=== PATIENT | female | born 1940 | race Caucasian/White ===

== ENCOUNTER 2022-07-06 15:11 | Outpatient (CLI) | payer MEDICARE, SELFPAY ==
--- NOTE | ~2022-07-06 | DEXA_ITS ---
Bone Density Report Name: CARMELINA SILVA Age: 82 Sex: Female Ethnicity: White Date of : 1940 Indication: osteopenia; parental hip fracture; height loss; prior fracture; postmenopausal Referring Provider: MATTHIEU BORDEN Study: Bone densitometry was performed. Exam Date: July 06, 2022 Accession number: [id number] Bone Density: Region BMD T-score Z-score Classification AP Spine(L1, L2, L3) 1.145 1.2 3.9 Normal Femoral Neck (Left) 0.555 -2.7 -0.2 Osteoporosis Total Hip (Left) 0.714 -1.9 0.4 Osteopenia Femoral Neck (Right) 0.578 -2.4 0.0 Osteopenia Total Hip (Right) 0.670 -2.2 0.1 Osteopenia Total Hip Mean 0.692 -2.1 0.3 Osteopenia World Health Organization criteria for BMD impression classify patients as: Normal (T-score at or above -1.0), Osteopenia (T-score between -1.0 and -2.5), or Osteoporosis (T-score at or below -2.5). 10-year Fracture Risk: FRAX not reported because: Some T-score for Spine Total or Hip Total or Femoral Neck at or below -2.5 Previous Exams: Region Exam Age BMD T-score BMD Change BMD Change Date g/cm2 vs Baseline vs Previous AP Spine (L1-L3) 07/06/2022 82 1.145 1.2 0.190 (19.8%)# 0.129 (12.7%)* 05/12/2018 78 1.016 0.0 0.060 (6.3%)# 0.072 (7.6%)* 04/24/2015 75 0.945 -0.7 -0.011 (-1.2%) -0.011 (-1.2%) 02/27/2013 72 0.956 -0.6 Total Hip(Left) 07/06/2022 82 0.714 -1.9 -0.033 (-4.4%) -0.037 (-5.0%) 05/12/2018 78 0.752 -1.6 0.005 (0.6%)# -0.037 (-4.7%) 04/24/2015 75 0.788 -1.3 0.041 (5.6%)# 0.041 (5.6%)# 02/27/2013 72 0.747 -1.6 Total Hip(Right) 07/06/2022 82 0.670 -2.2 -0.041 (-5.8%) 0.004 (0.7%) 05/12/2018 78 0.666 -2.3 -0.045 (-6.4%) 0.002 (0.3%) 04/24/2015 75 0.664 -2.3 -0.047 (-6.6%) -0.047 (-6.6%) 02/27/2013 72 0.711 -1.9 *Denotes significance at 95% confidence level, LSC for AP Spine = 0.022 g/cm2, LSC for Total Hip = 0.027 g/cm2 # Denotes dissimilar scan types or analysis methods Clinical Information Provided by Patient: Has had a low trauma fracture Parent has had a hip fracture Patient maximum height was 63 Menopause Age: 53 No regular weight bearing exercise Drinks caffeinated beverages Onset of menses at age 14 Number of children 2 Impression: The patient has established osteoporosis, based on the Left Femoral Neck T-score and the existence of a prior fracture. The patient has risk factors, including: parental hi
== END 2022-07-06 15:12 | disposition home or self-care (01) ==
LOC: ANHIMG 15:12
PROVIDERS: PCP Internal Medicine; Visit Provider Internal Medicine
DX: Z78.0 Asymptomatic menopausal state (principal); M81.0 Age-related osteoporosis without current pathological fracture; M85.852 Other specified disorders of bone density and structure, left thigh; M85.851 Other specified disorders of bone density and structure, right thigh
CPT/HCPCS: 77080

== ENCOUNTER 2024-05-01 11:05 | Outpatient (CLI) | payer MEDICARE, SELFPAY ==
[2024-05-01 11:46] LABS: Basophils Absolute Auto 0.1 K/mm3 (0.0-0.1); Basophils Percent Auto 0.9 % (0.2-1.2); Eosinophils Absolute Auto 0.4 K/mm3 (0-0.3); Eosinophils Percent Auto 4.7 % (0-4.4); Hematocrit 38.6 % (37.0-47.0); Hemoglobin 12.6 g/dL (12.0-15.0); Immature Granulocyte Absolute 0.04 K/mm3 (0.00-0.031); Immature Granulocyte Percent A 0.5 % (0-0.5); Lymphocytes Absolute Auto 1.92 K/mm3 (0.9-3.2); Lymphocytes Percent Auto 25.8 % (18.3-44.2); Mean Corpuscular HGB Conc 32.6 g/dl (32-36); Mean Corpuscular Hemoglobin 28.3 pg (26-34); Mean Corpuscular Volume 86.7 fl (80-100); Mean Platelet Volume 9.5 fl (7.4-10.4); Monocytes Absolute Auto 0.6 K/mm3 (0.1-0.6); Monocytes Percent Auto 8.2 % (2.6-8.5); Neutrophils Absolute Auto 4.5 K/mm3 (1.3-6.7); Neutrophils Percent Auto 59.9 % (45.5-73.1); Platelet Count Result 288 k/mm3 (150-375); Red Blood Count 4.45 M/mm3 (4.2-5.4); Red Cell Distribution Width 12.5 % (11.5-14.5); White Blood Count 7.5 K/mm3 (4.5-10.0)
[2024-05-01 12:11] LABS: Alanine Aminotransferase 18 U/L (6-35); Albumin Level 4.5 g/dL (3.5-5.1); Alkaline Phosphatase 72 U/L (38-126); Anion Gap 10 mmol/L (4-12); Aspartate Amino Transferase 36 U/L (14-36); Bilirubin,Total 0.7 mg/dL (0.2-1.3); Blood Urea Nitrogen 23 mg/dL (7-17); Carbon Dioxide 32 mmol/L (22-30); Chloride 96 mmol/L (98-107); Cholesterol 161 mg/dL (0-200); Estimated Glomerular Filt Rate 39; Glucose 108 mg/dL (65-110); HDL Direct 39 mg/dL; Sodium 138 mmol/L (137-145); Triglycerides 150 mg/dL (<150)
[2024-05-01 12:23] LABS: LDL Cholesterol Direct 79 mg/dL
[2024-05-01 12:33] LABS: Free T4 Free Thyroxine 0.91 ng/mL (0.78-2.19)
== END 2024-05-01 11:06 | disposition home or self-care (01) ==
LOC: ANHLAB 11:17
PROVIDERS: PCP Internal Medicine; Visit Provider Internal Medicine
DX: I10 Essential (primary) hypertension (principal)
CPT/HCPCS: 36415; 80053; 80061; 84439; 84443; 84481; 85025

== ENCOUNTER 2024-05-04 12:50 | Outpatient (CLI) | payer MEDICARE, SELFPAY | END 2024-05-04 12:51 | disposition home or self-care (01) | LOC: ANHAUDASC 12:53 | PROVIDERS: PCP Internal Medicine; Visit Provider Internal Medicine | DX: H90.3 Sensorineural hearing loss, bilateral (principal) | CPT/HCPCS: 92557; 92567 ==

== ENCOUNTER 2025-01-17 13:42 | Outpatient (CLI) | payer MEDICARE, SELFPAY ==
--- OUTSIDE RECORDS SUMMARY | 2025-01-17 13:51 | XMS_ITS | CONTINUITY OF CARE DOCUMENT ---
Author Name misti, misti Address Unknown Organization [facility] Address [address] [place] [address] Phone [phone] Care Team Providers Care Windshield Repair Technician Name Role Phone Mauricio Myles MD Unavailable [phone] MATTHIEU PASCUAL MD Unavailable MATTHIEU PASCUAL MD Unavailable [phone] PROBLEMS Condition Status Date Provider Notes HYPERCHOLESTEROLEMIA active Mauricio Myles MD HTN ESSENTIAL active Mauricio Myles MD CHEST PAIN-03/04 NUC NEG EF 61 active ? Cornelius cortez RN ENCOUNTERS Date Type Provider Location Encounter Diag nosis - In-person encounter Office Visit Mauricio Myles MD [place] [facility] - In-person encounter Office Visit Mauricio Myles MD [place] [facility] CHEST PAIN-03/04 NUC NEG EF 61HTN ESSENTIALHYPERCHOLESTEROLEMIA VITAL SIGNS Date Observation Value Provider blood pressure, diastolic 85 mm[Hg] Salomon Miles RN blood pressure, systolic 155 mm[Hg] Cornelius Miles RN pulse rate 87 /min Cornelius Miles RN oxygen saturation, oximetry 99 % Cornelius Miles RN respiratory rate E&M 16 /min Cornelius li RN Body Mass Index (Ratio) 26.36 kg/m2 Cornelius Miles RN weight E&M 143.6 [lb_av] Cornelius Miles RN blood pressure, diastolic 89 mm[Hg] Ke rri Junioruelolier blood pressure, systolic 154 mm[Hg] Fady Sanzkirti pulse rate 115 /min Lori Talbert bria oxygen saturation, oximetry 95 % Lori Rivasmichelle respiratory rate E&M 18 /min Lori aggarwalkirti Body Mass Index (Ratio) 25.33 kg/m2 Lindsey Sanzkirti weight E&M 138 [lb_av] Lori Talbert joanaer height E&M 62 [in_i] Lori Handylilyyang joanaer ALLERGIES No Known Drug Allergies HISTORY OF MEDICATION USE Medication Status Instructions Dates Provider Indications Com ments EQ OMEPRAZOLE 20 MG ORAL TABLET DELAYED RELEASE active daily Cornelius Miles RN VITAMIN D TABLET active 5000iu monthly Lindsey bright Evelynmichelle MULTIVITAMINS ORAL CAPSULE active ONE TAB. DAILY Lori Flako ASPIRIN 81 MG ORAL TABLET active ONE TAB. DAILY Lori Flako DICLOFENAC SODIUM 50 MG ORAL TABLET DELAYED RELEASE active daily Lori Pachecobeamichelle LIPITOR 20 MG ORAL TABLET completed ONE TAB. DAILY - Cornelius Miles RN DIOVAN HCT 160-25 MG ORAL TABLET active one tab daily Lori Flako CALCIUM active 600mg once daily Lori Flako SOCIAL HISTORY Date Observation Value Provider drug use no Cornelius Miles RN passive cigarette smoke exposure no Cornelius Miles RN social history reviewed E&M reviewed Cornelius Miles RN social history E&M Marital Status: [place] d Mauricio Myles MD alcohol use, average drinks per day no Mauricio Myles MD drug use none Mauricio Myles MD smoking status never smoker Mauricio Myles MD social history reviewed E&M reviewed Mauricio Myles MD MENTAL STATUS Date Observation Value Provider assessment of judgme nt and insight E&M Alert and oriented to time, place and person. Mood and affect are normal.Alert and oriented to time, place and person. Mood and affect are normal. Mauricio Myles MD assessment of judgme nt and insight E&M Alert and oriented to time, place and person. Mood and affect are normal. Mauricio Myles MD INSURANCE PROVIDERS Payer name Policy type / Coverage type [employer] party ID [facility] [id number] [place] [employer] Medicare [id number] TREATMENT PLAN Date Name Performer test results : H er updated medication list for this problem includes: Aspirin 81 Mg Tabs (Aspirin) ..... One tab. daily BP today: / Prior BP: 154/89 (02/16/2013) N uclear Stress Findings: 1. Normal Madhav protocol exercise tolerance test.Impaired exercise tolerance 2 . Normal left ventricular size and function with a calculated ejection fraction of 61%. 3 . Myocardial scintigraphy is normal without evidence for previous myocardial infarction or reversible ischemia. - GC (02/21/2013) Mauricio Myles MD test results :155/85 H er updated medication list for this problem includes: Diovan Hct 160-25 Mg Tabs (Valsartan-hydrochlorothiazide) ..... One tab daily Aspirin 81 Mg Tabs (Aspirin) ..... One tab. daily Prior BP: 154/89 (02/16/2013) Mauricio Myles MD test results : T he following medications were removed from the medication list: Lipitor 20 Mg Tabs (Atorvastatin calcium) ..... One tab. daily BP today: / Prior BP: 154/89 (02/16/2013) Mauricio Myles MD : H er updated medication list for this problem includes: Lipitor 20 Mg Tabs (Atorvastatin calcium) ..... One tab. daily Mauricio Myles MD :154/89 H er updated medication list for this problem includes: Diovan Hct 160-25 Mg Tabs (Valsartan-hydrochlorothiazide) ..... One tab daily Aspirin 81 Mg Tabs (Aspirin) ..... One tab. daily Mauricio Myles MD : H er updated medication list for this problem includes: Aspirin 81 Mg Tabs (Aspirin) ..... One tab. daily Mauricio Myles MD Date Name STR - Nuclear Complete Echo
--- OUTSIDE RECORDS SUMMARY | 2025-01-17 13:51 | XMS_ITS | Data Portability ---
Author Organization [facility] Address [address] [place] [address] Care Team Providers Care Hot Box Checker Name Role Phone MATTHIEU DURÁN Primary Care Provider [phone] Assessment Encounter Date Assessment Date Assessment LastModified by Organization Details LastModified Time 05/01/2024 05/01/2024 continue current therapy healthy lifestyle care instructions to help her lose some weight hearing test follow up 4 months blood pressure today 130/90 we will have her monitor at home [email or web address] Not available 05/07/2024 18:35:51 09/07/2024 09/07/2024 obtain last echo report healthy lifestyle care instructions continue with her medications. All questions answered she will follow up me in 4 months' time [email or web address] Not available 09/07/2024 21:24:42 01/11/2025 01/11/2025 We will continue current therapy blood work has been ordered overall she has been doing fine echocardiogram blood work follow up 4 months continue current therapy [email or web address] Not available 01/13/2025 18:12:31 Plan of Treatment Reminders Order Date Submit Date Provider Last Modified By Organization Details Last Modified Time Details Appointments ANY 15 2024 01:30P M Matthieu Durán MD Not available Not available Not available Lab CBC w/ auto diff 2024 025 [email or web address] [facility], [address], [place], [address], 01/11/2025 17:58:05 lipid panel, serum 2024 025 [email or web address] [facility], [address], [place], [address], 01/11/2025 17:58:05 CMP, serum or plasma 2024 025 [facility], [address], [place], [address], 01/11/2025 17:58:05 CBC w/ auto diff 2023 024 ROWENA [facility], [address], [place], [address], 05/01/2024 16:42:38 CMP, serum or plasma 2023 024 ROWENA [facility], [address], [place], [address], 05/01/2024 16:42:38 lipid panel, serum [facility]24 [email or web address], [address], [place], [address], 05/23/2024 15:37:33 TSH, ultra-sen sitive, serum 2023 024 ROWENA [facility], [address], [place], [address], 05/01/2024 16:42:38 unlisted lab - T4, free 2023 024 [place] [email or web address] [facility], [address], [place], [address], 05/23/2024 15:37:19 T3, free, serum or plasma 2023 024 ROWENA [facility], [address], [place], [address], 05/03/2024 12:12:[address] referral - Pt needs hearing test. 2023 024 ROWENA Not available 05/05/2024 09:18:51 Procedures None recorded. Surgeries None recorded. Imaging US, echocardi ogram 2024 025 [facility] (Cardiology [facility]), [address], [address], 01/16/2025 14:45:29 Medication Orders None recorded. Patient TargetsNo targets recorded. 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 Referring Physician: Matthieu Durán, Internal Medicine, Encounter Date: 05/01/2024 Results Created Date Observation Date Name Description Value Unit Range Abnormal Flag Note LastModifiedBy Organization Detail LastModifiedTime 09/08/1903/30/2023 US, echoc ardio gram No observ ation record ed. [email or web address] [facility] [address] [place], [address], 09/14/2024 13:29:40 Result Notes None recorded. Problems Name Problem SNOMED Code Status Onset Date Resolution Date Notes Provider Name and Address Organization Details Recorded Time Essential hypertension 05843546 Active 2023 CHASIDY Cordero, [place] [facility] 16:58:03 Hyperlipidemia 25754331 Active 2023 CHASIDY Cordero, [place] - [facility] 16:58:10 Gastroesophage al reflux disease 979233812 Active 2023 CHASIDY Cordero, [place] - [facility] 4 16:58:19 Hyponatremia 89708194 Active 2023 Selvin Ramirez MA null, [facility] 4 16:58:33 Chronic rhinitis 84524949 Active 2023 Matthieu Durán MD Attn: Reynaldo smallwood,[address], [place], [address], [facility] 4 18:35:31 Aortic valve calcification 066886654 Active 2024 Matthieu Durán MD Attn: Reynaldo smallwood,[address], [place], [address], [facility] 5 18:12:05 Problem Notes None recorded. Procedures Surgical History Date Name Laterality Status Provider Name and Address Organization Details Recorded Time Eye Surgery completed Deanna Childs MA [facility] 11/02/2023 12:52:04 Appendectomy completed Deanna Childs MA [facility] 11/02/2023 12:52:11 Breast Surgery completed Deanna Childs MA [facility] 11/02/2023 12:52:19 Imaging Results None recorded. Procedure Notes None recorded. Medical Equipment None Reported. Allergies No known drug allergies Medications Name Sig Start Date Stop Date Status Note LastModified by Organization Details LastModified Time atorvastatin 40 mg tablet TAKE 1 TABLET EVERY DAY active Not Available Not Available No t Available doxycycline hyclate 100 mg capsule TAKE 1 CAPSULE BY MOUTH TWICE DAILY FOR 7 DAYS 11/01 completed Not Available Not Available Not Available azithromycin 250 mg tablet TAKE 2 TABLETS BY MOUTH ON DAY 1, AND THEN TAKE 1 TABLET BY MOUTH ONCE A DAY ON DAY 2 THROUGH DAY 5 active Not Available Not Available No t Available amlodipine 5 mg tablet TAKE 1 TABLET EVERY DAY active Not Available Not Available No t Available metoprolol tartrate 50 mg tablet TAKE 1 TABLET TWICE DAILY active Not Available Not Available No t Available omeprazole 20 mg capsule,katie yed release TAKE 1 CAPSULE EVERY DAY active Not Available Not Available No t Available hydrochlorot hiazide 25 mg tablet TAKE 1 TABLET EVERY DAY active Not Available Not Available No t Available losartan 100 mg tablet TAKE 1 TABLET EVERY DAY active Not Available Not Available No t Available Vitamin D3 active Not Available Not Av ailable Not Available cetirizine 10 mg capsule Take by oral route. active Not Available Not Available No t Available aspirin 81 mg capsule Take 1 capsule every day by oral route. active Not Available Not Available No t Available Vitals Date Recorded Body height Body mass index (BMI) Body weight Heart rate Oxygen saturation Oxygen saturation in Arterial blood by Pulse oximetry Systolic blood pressure Diastolic blood pressure Provider Name and Address Organization Details Last Updated DateTime 5 157.48 cm 27 kg/m2 38554.2 3 g 62 /min 98 % 98 % 126 mm[Hg] 62 mm[Hg] Francine Tabares MA [facility] 5 14:52:36 Date Recorded Body height Provider Name an d Address Organization Details Last Updated DateTime 12/30/2023 157.48 cm Francine Tabares MA [facility] 4 12:27:43 Date Recorded Body height Systolic blood pressure Diastolic blood pressure Provider Name and Address Organization Details Last Updated DateTime 01/06/2024 157.48 cm 150 mm[Hg] 84 mm[Hg] Deanna Childs MA [facility] 01/06/2024 12:19:08 Date Recorded Body height Body mass index (BMI) Body weight Heart rate Oxygen saturation Oxygen saturation in Arterial blood by Pulse oximetry Systolic blood pressure Diastolic blood pressure Provider Name and Address Organization Details Last Updated DateTime 5 157.48 cm 26.2 kg/m2 02819.0 7 g 84 /min 98 % 98 % 124 mm[Hg] 68 mm[Hg] Francine Tabares MA [facility] 5 14:51:31 Date Recorded Body height Body mass index (BMI) Body weight Heart rate Oxygen saturation Oxygen saturation in Arterial blood by Pulse oximetry Systolic blood pressure Diastolic blood pressure Provider Name and Address Organization Details Last Updated DateTime 157.48 cm 26.5 kg/m2 34170.0 4 g 73 /min 97 % 97 % 130 mm[Hg] 90 mm[Hg] Nikole Parks MA [facility] 11:30:02 Social History Question Answer Notes LastModified by Organizat ion Details LastModified Time Tobacco Smoking Status Never Smoker Deanna Childs MA null, [facility] 11/02/2023 12:54:01 Do You Have An Advance Directive? Yes Information n ot available 11/02/2023 Are You Blind Or Do You Have Difficulty Seeing? No Information n ot available 11/02/2023 What Is Your Level Of Caffeine Consumption? Occasional Information not available 11/02/2023 In The 14 Days Before Symptom Onset, Have You Had Close Contact With A Laboratory-confirm ed COVID-19 While That Case Was Ill? No Information n ot available 05/01/2024 In The 14 Days Before Symptom Onset, Have You Had Close Contact With A Person Who Is Under Investigation For COVID-19 While That Person Was Ill? No Information not available 05/01/2024 Have You Been To An Area Known To Be High Risk For COVID-19? No Information not available 05/01/2024 Are You Deaf Or Do You Have Serious Difficulty Hearing? No Information not available 11/02/2023 What Type Of Diet Are You Following? REGULAR Information n ot available 11/02/2023 Are There Any Guns Present In Your Home? No Information not available 11/02/2023 What Was The Date Of Your Most Recent Tobacco Screening? 01/11/2025 [email or web address] Information not available 01/11/2025 What Is Your Relationship Status? Information not available 11/02/2023 Do You Use Your Seat Belt Or Car Seat Routinely? Yes Information not available 11/02/2023 Do You Have Smoke And Carbon Monoxide Detectors In Your Home? Yes Information not available 11/02/2023 Do You Use Sunscreen Routinely? No Information not available 11/02/2023 Has Tobacco Cessation Counseling Been Provided? No Information not available 11/02/2023 Sex: Female Functional Status Question Answer Note LastModified by Organizat ion Details LastModified Time Do you use any illicit or recreational drugs? No Information not available 11/02/2023 Do you or have you ever used any other forms of tobacco or nicotine? No Information not available 11/02/2023 What is your level of alcohol consumption? Occasional Information not available 11/02/2023 Are you able to care for yourself? Yes Information n ot available 11/02/2023 What is your exercise level? None Information not available 11/02/2023 Mental Status Question Answer Note LastModified by Organization D etails LastModified Time Do you feel stressed (tense, restless, nervous, or anxious, or unable to sleep at night)? [id number] Information not available 11/02/2023 Family History Relationship Description Onset Age of this Age Resolved Age Notes LastModified by Organization Details LastModified Time Mother Malignant tumor of colon [email or web address] Not available 10/21 12:55:58 Mother Hypertensive disorder [email or web address] Not available 10/21 12:56:44 Father Myocardial infarction [email or web address] Not available 07/2024 12:56:05 Medical History Condition Response Coronary Artery Disease N High Blood Pressure Y Atrial Fibrillation N Kidney or Bladder Problems N Depression N COPD N Blood Clots N GI Problems N Skin Problems N Anemia N Heart Attack (NE) N Diabetes N Anxiety Disorder N Muscle, Joint, or Bone Problems Y Seizures/Epilepsy N Acid Reflux (GERD) Y Cancer N Asthma N Allergies Y High Cholesterol Y Hepatitis N Liver Disease N Headaches N Osteoporosis N Heart Failure N Gynecological HistoryNo gynecological history recorded. Obstetrics History GPAL:G 0 P 0 0 0 0 Immunizations Vaccine Type Date Status Note Provider Nam e and Address Organization Details Recorded Time Influenza, high-dose, quadrivalent, PF 2 completed Francine [place], [place] [facility] 09/07/2024 14:48:05 Influenza, high-dose, quadrivalent, PF 0 completed Francine Tab[place] [facility] 09/07/2024 14:48:05 Influenza, high-dose, quadrivalent, PF 3 completed Francine RaysaCHASIDY dozier [place] [facility] 09/07/2024 14:48:05 Influenza, high-dose, quadrivalent, PF 1 completed Francine Tab[place] [facility] 09/07/2024 14:48:05 Influenza, high-dose, quadrivalent, PF 9 completed Francine [place] [facility] 09/07/2024 14:48:05 COVID-19, mRNA, LNP-S, PF, 100 mcg/0.5mL dose or 50 mcg/0.25mL dose 1 [place] [facility] 09/07/2024 14:48:05 COVID-19, mRNA, LNP-S, PF, 100 mcg/0.5mL dose or 50 mcg/0.25mL dose 1 completed Francine Tabares [place] [facility] 09/07/2024 14:48:05 COVID-19, mRNA, LNP-S, PF, 100 mcg/0.5mL dose or 50 mcg/0.25mL dose 1 [place] [facility] 09/07/2024 14:48:05 COVID-19, mRNA, LNP-S, PF, 100 mcg/0.5mL dose or 50 mcg/0.25mL dose 1 [place] [facility] 09/07/2024 14:48:05 COVID-19, mRNA, LNP-S, bivalent, PF, 50 mcg/0.5 mL or 25mcg/0.25 mL dose 3 [place] [facility] 09/07/2024 14:48:05 pneumococcal polysaccharide PPV23 9 [place] [facility] 09/07/2024 14:48:05 influenza, unspecified formulation 8 completed Francine Tabares [place] [facility] 09/07/2024 14:48:05 Pneumococcal conjugate PCV 13 1 completed Francine [place]ares [place] [facility] 09/07/2024 14:48:05 zoster live 1 completed Francine Tabares [place] [facility] 09/07/2024 14:48:05 Influenza, high-dose, trivalent, PF 5 completed Francine Tabares [place] [facility] 09/07/2024 14:48:05 Influenza, high-dose, trivalent, PF 6 completed Francine Rays[place], [place] [facility] 09/07/2024 14:48:05 Influenza, high-dose, trivalent, PF 7 completed Francine Raysa, [place] [facility] 09/07/2024 14:48:05 Influenza, high-dose, trivalent, PF 6 completed Francine Raysa, [place] [facility] 09/07/2024 14:48:05 Influenza, high-dose, trivalent, PF 9 completed Francine Raysa, [place] [facility] 09/07/2024 14:48:05 Influenza, split virus, trivalent, PF 0 completed Francine Raysa, [place] [facility] 09/07/2024 14:48:05 Influenza, high-dose, trivalent, PF 4 completed Francine Raysa, [place] [facility] 09/07/2024 14:48:11 Past Encounters Encounter ID Performer Location Encounter Start Date Encounter Closed Date Diagnosis/Indication Diagnosis SNOMED-CT Code Diagnosis ICD10 Code Diagnosis Note [id number] Matthieu Durán MD [facility] (Adult Med) [address] [place] [phone] 11/02/2023 12:13:44 11/02/2023 13:47:51 Essential hypertension 85378324 I10 Hyperlipidemia 23260730 E78.5 Gastroesop hageal reflux disease without esophagitis 912199383 K21.9 Hyponatremia 98896960 E8 7.1 [id number] MD [facility] (Adult Med) [address] [place] [phone] 12/22/2023 11:50:24 01/21/2024 03:48:31 [id number] Matthieu Durán MD [facility] [place] [address] [place] [address] 12/30/2023 11:42:28 12/30/2023 14:39:14 Essential hypertension 67722940 I10 [id number] Matthieu Durán MD [facility] [place] [address] [place] [address] 01/06/2024 11:45:37 01/06/2024 12:52:04 Essential hypertension 59126245 I10 [id number] Matthieu Durán MD [facility] [employer] [facility] [place] [address] [place] [phone] 05/01/2024 10:49:48 05/01/2024 11:47:36 Overweight 774568554 E66.3 Essential hypertension 64112459 I10 Bilateral hearing loss 83915977 H91.93 Gastroesop hageal reflux disease 615600671 K21.9 Hyperlipidemia 48968264 E78.5 Chronic rhinitis 8870199 6 J31.0 [id number] Matthieu Durán MD [facility] [employer] [facility] [place] [address] [place] [phone] 09/07/2024 14:37:06 09/07/2024 15:48:55 Body mass index 25-29 - overweight 827790589 Z68.27 Overweight 255022817 E66 .3 Essential hypertension 02455825 I10 Gastroesop hageal reflux disease 733191982 K21.9 Hyperlipidemia 76049979 E78.5 [id number] Matthieu Durán MD [facility] [place] [address] [place] [phone] 01/11/2025 14:39:47 01/11/2025 15:46:06 Overweight in adulthood with body mass index of 25 or more but less than 30 018065913 E66.3 Z68.26 Overweight 975227103 E66 .3 Essential hypertension 11303534 I10 Hyperlipidemia 29566530 E78.5 Gastroesop hageal reflux disease 149031274 K21.9 Aortic sigrid ve calcification 089315774 I35.9 Health Concerns Section Related Observation LastModified by Organization Detai ls LastModified Time None Recorded Concern Status LastModified by Organization Details LastModified Time None Recorded Advance Directives Directive Y: Payers Encounter Date Sequence Insurance Name Policy Number Policy Arizmendi Covered Member ID Arizmendi Member ID Guarantor Name 12/30/2023 1 [place] Vicky Page Yordan [id number] Vicky A Yordan 12/30/2023 2 [place] Phyliss Stephanie Yordan [id number] Vicky A Yordan 01/06/2024 1 [place] Vicky A Yordan [id number] Vicky A Yordan 01/06/2024 2 [place] Phyliss Stephanie Yordan [id number] Vicky A Yordan 05/01/2024 1 [place] V[place] A Yordan [id number] Vicky A Yordan 05/01/2024 2 [place] Phyliss Stephanie Yordan [id number] Vicky A Yordan 09/07/2024 1 [place] Vicky A Yordan [id number] 2 Ivcky A Yordan 09/07/2024 2 [place] Phyliss Stephanie Yordan [id number] Vicky A Yordan 01/11/2025 1 [place] Vicky A Yordan [id number] 2 Vicky A Yordan 01/11/2025 2 [place] Phyliss Stephanie Yordan [id number] Vicky A Yordan Notes Date Note Type Note Provider Name and Address Organization Details Recorded Time 05/01/2024 text/html hypertension no headache or dizziness she is having some problems with hearing loss hyperlipidemia trying to follow a low-fat diet GERD no nausea no vomiting rhinitis does okay with the Zyrtec Matthieu Durán MD Attn: [address] [place], [address], [facility] 05/07/2024 18:36:41 09/07/2024 text/html hypertension no headache or dizziness going to nausea no vomiting hyperlipidemia takes her medication is trying to follow a low-fat diet the best that she can overall she has remained stable active Matthieu Durán MD Attn: [address] [facility], [place], [address], [place] 09/07/2024 21:25:17 01/11/2025 text/html hypertension no headache or dizziness going to nausea no vomiting hyperlipidemia takes her medication is trying to follow a low-fat diet the best that she can overall she has remained stable active GERD doing fine she is taking her supplementation for her low vitamin-D chronic rhinitis stable Matthieu Durán MD Attn: [address] [facility], [place], [address], [facility] 01/13/2025 18:12:55 OBGyn Episode No OBEpisode recorded.
--- OUTSIDE RECORDS SUMMARY | 2025-01-17 13:51 | XMS_ITS | Data Portability ---
Author Organization [facility], Main Office Address [address] [place] [address] Care Team Providers Care Test Architect Name Role Phone MATTHIEU DURÁN Primary Care Provider MATTHIEU DURÁN Referring Provider Assessment Encounter Date Assessment Date Assessment LastModified by Organization Details LastModified Time 03/22/2023 03/22/2023 mawv portion completed by Lorenza Santiago RN under supervision of Dr Durán screenings and immunizations ordered where patient agreeable and appropriate. Echocardiogram blood work reviewed low fat low salt low process foods follow-up 6 months [email or web address] Not available 03/22/2023 22:13:44 Plan of Treatment Reminders Order Date Submit Date Provider Last Modified By Organization Details Last Modified Time Details Appointments None recorded. Lab lipid panel, serum 2022 023 [facility] (Lab), [address] [place], [address], 4 18:21:55 CBC w/ auto diff 2022 023 [facility] (Lab), [address] [place], [address], 4 18:25:07 CMP, serum or plasma 2022 023 [facility] (Lab), [address] [place], [address], 4 18:22:00 Referral None recorded. Procedures None recorded. Surgeries None recorded. Imaging US, echocardiog davon 2022 023 [facility] ([facility]), [address] [place], [address], 11:10:13 Medication Orders None recorded. Patient TargetsNo targets recorded. Patient Instructions Encounter Date Encounter Id Patient Instructions Last Modified By Organization Details Last Modified Time 03/22/2023 [id number] dementia rating scale-2* Not available 03/22/2023 17:19:57 Timed Up and Go test (TUG)* Not available 03/22/2023 17:19:57 alcohol misuse* [email or web address] Not available 03/22/2023 17:19:57 depression screening* [email or web address] Not available 03/22/2023 17:19:57 multi-dimensiona l health assessment questionnaire* [email or web address] Not available 03/22/2023 17:19:57 advance care planning: care instructions [email or web address] Not available 03/22/2023 17:19:57 Personalized a lt Plan and Screening Recommendations Advance Directives - Do you have one? Yes Advance Directives - Do we have your advance directive on file in your health record? No, please bring in a copy at your earliest convenience Primary Prevention/Interven tion (prevents or decreases the chance of common diseases from occurring) Smoking Risk: Non Smoker Alcohol Misuse Screening: Negative Weight: Overweight try to lose 5% of your body weight Physical activity: Appropriate physical activity minimum of 20-30 minutes activity that causes mild breathlessness/day Nutrition: Good Refer to attached handout Heart-Healthy Diet: After Your Visit Fall Risk (screened today): Low Refer to attached handout Preventing Falls: After your Visit Vaccines Pneumococcal: No further needed Influenza: Your next one in the fall of this year Chronic Disease Risks Stroke: Intermediate Risk Active diagnosis, Continue current treatment plan Heart Attack: Intermediate Risk Active diagnosis, Continue current treatment plan Clogging of the Arteries: Intermediate Risk Active diagnosis, Continue current treatment plan Diabetes: Low Risk I have no recommendations Secondary Prevention/Interven tion (detects treatable diseases before they may cause symptoms, disability, or ) Breast Cancer Screening with mammogram: No screening necessary Cervical/Uterine/Ov paula Cancer Screening: No screening necessary Osteoporosis Screening: Your next DEXA in: Ordered Recomme nded today Recommended today, but you have declined No screening necessary Your next DEXA in:2024 Date Screening Last Performed: __2022 Colon Cancer Screening: No screening necessary Date Screening Last Performed: Eye Disease Screening: Ordered Recommended today Recommended today, but you have declined No Eye exam necessary Your next exam in: annually Dementia Risk: Low I have no recommendations Depression Screening: Negative Active diagnosis, Continue current treatment plan [email or web address] Not available 03/22/2023 14:49:22 Reason for Referral None Reported. Results Created Date Observation Date Name Description Value Unit Range Abnormal Flag Note LastModifiedBy Organization Detail LastModifiedTime 01/23/20 22 01/22/2022 MAGNE SIUM magnesium 1.6 mg/dL 1.6-2. 3 Not Available [facility] (Lab) [address] [place], [address], 01/22/2022 15:11:31 01/23/20 22 01/22/2022 LIPID PANEL cholesterol 153 mg/dL 140-19 9 NIH NATANAEL NSUS RECOM MENDA TION FOR LAURI STERO L: ADULT CHILD LOW RISK: <200 <170 BORDE RLINE : <200- 239 ----- HIGH RISK: >240 >200 Not Available [facility] (Lab) [address] [place], [address], 01/22/2022 15:11:29 01/23/20 22 01/22/2022 LIPID PANEL triglyceride s 93 mg/dL 0-150 NIH NATANAEL NSUS REPOR T RECOM MENDA TION FOR TRIGL YCERI MIREYA: ADULT CHILD LOW RISK: <150 ----- BODER LINE: 150-1 99 ----- HIGH RISK: >200 ----- Not Available [facility] (Lab) [address] [place], [address], 01/22/2022 15:11:29 01/23/20 22 01/22/2022 LIPID PANEL HDL cholesterol 40 mg/dL 40- Not Available [facility] (Lab) [address] [place], [address], 01/22/2022 15:11:29 01/23/20 22 01/22/2022 LIPID PANEL LDL cholesterol, calculated 94 mg/dL 0-130 NIH NATANAEL NSUS REPOR T RECOM MENDA TIONS FOR LDL: ADULT CHILD LOW RISK <130 <110 (OPTI MAL LDL) <100 ----- BORDE RLINE : 130-1 59 ----- HIGH RISK: >160 >130 A TRIGL YCERI DE RESUL T >400 INVAL IDATE S THE CALCU LATIO N FOR LDL FRACT IONAT ION - THE LDL RESUL T WILL NOT BE REPOR JHOANA. Not Available [facility] (Lab) [address] [place], [address], 01/22/2022 15:11:29 01/23/20 22 01/22/2022 COMPR EHENS DAVID METAB OLIC PANEL creatinine 1.15 mg/dL 0.66-1 .25 Not Available [facility] (Lab) [address] [place], [address], 01/22/2022 15:11:25 01/23/20 22 01/22/2022 COMPR EHENS DAVID METAB OLIC PANEL sodium 137 mmol/ L 137-14 5 Not Available [facility] (Lab) [address] [place], [address], 01/22/2022 15:11:25 01/23/20 22 01/22/2022 COMPR EHENS DAVID METAB OLIC PANEL potassium 4.8 mmol/ L 3.5-5. 1 Not Available [facility] (Lab) [address] [place], [address], 01/22/2022 15:11:25 01/23/20 22 01/22/2022 COMPR EHENS DAVID METAB OLIC PANEL chloride 99 mmol/ L 98-107 Not Available [facility] (Lab) [address] [place], [address], 01/22/2022 15:11:25 01/23/20 22 01/22/2022 COMPR EHENS DAVID METAB OLIC PANEL carbon dioxide 29 mmol/ L 22-30 Not Available [facility] (Lab) [address] [place], [address], 01/22/2022 15:11:25 01/23/20 22 01/22/2022 COMPR EHENS DAVID METAB OLIC PANEL anion gap 13.8 mmol/ L 14-22 low Not Available [facility] (Lab) [address] [place], [address], 01/22/2022 15:11:25 01/23/20 22 01/22/2022 COMPR EHENS DAVID METAB OLIC PANEL glucose 103 mg/dL 70-99 high Not Available [facility] (Lab) [address] [place], [address], 01/22/2022 15:11:25 01/23/20 22 01/22/2022 COMPR EHENS DAVID METAB OLIC PANEL BUN 23 mg/dL 8-19 high Not Available [facility] (Lab) [address] [place], [address], 01/22/2022 15:11:25 01/23/20 22 01/22/2022 COMPR EHENS DAVID METAB OLIC PANEL GFR 45 Refer ence Range : [place] ge GFR Healt hy Adult : >60 mL/mi n/1.7 3 m2 Chron ic Kidne y Disea se: 15-60 mL/mi n/1.7 3 m2 Kidne y Failu re: <15/m L/min /1.73 m2 www.n iddk. nih.g ov The MDRD study equat ion has not been valid ated in child emmy <18 years of age; pregn ant women ; the elder ly >85 years of age; or in some racia l or ethni c subgr oups, such as Hispa nics. Outsi de the valid ated erick eters , estim ated GFR is less accur ate, requi ring clini caden judgm ent on a case- by-ca se basis . Clini caden inter preta tion for other races and ages must be made by the clini yojana. The MDRD study equat ion has not been valid ated for the evalu ation of serum creat inine relat ed to nutri jose carlos l statu s or medic ation usage . For perso ns <18 years of age, a pedia tric GFR calcu lator is avail able on the F websi te: https ://ramiro w.paulette garretty.o rg/pr ofess ional s/kdo qi/gf r_cal culat or Not Available [facility] (Lab) [address] [place], [address], 01/22/2022 15:11:25 01/23/20 22 01/22/2022 COMPR EHENS DAVID METAB OLIC PANEL alkaline phosphatase 102 U/L 38-126 Not Available [facility] (Lab) [address] [place], [address], 01/22/2022 15:11:25 01/23/20 22 01/22/2022 COMPR EHENS DAVID METAB OLIC PANEL alanine aminotransfe rase 13 U/L 0-35 Not Available [facility] (Lab) [address] [place], [address], 01/22/2022 15:11:25 01/23/20 22 01/22/2022 COMPR EHENS DAVID METAB OLIC PANEL aspartate aminotransfe rase 27 U/L 15-37 Not Available [facility] (Lab) [address] [place], [address], 01/22/2022 15:11:25 01/23/20 22 01/22/2022 COMPR EHENS DAVID METAB OLIC PANEL bilirubin, total 0.70 mg/dL 0.20-1 .30 Not Available [facility] (Lab) [address] [place], [address], 01/22/2022 15:11:25 01/23/20 22 01/22/2022 COMPR EHENS DAVID METAB OLIC PANEL calcium 10.0 mg/dL 8.4-10 .2 Not Available [facility] (Lab) [address] [place], [address], 01/22/2022 15:11:25 01/23/20 22 01/22/2022 COMPR EHENS DAVID METAB OLIC PANEL total protein 7.3 g/dL 6.3-8. 2 Not Available [facility] (Lab) [address] [place], [address], 01/22/2022 15:11:25 01/23/20 22 01/22/2022 COMPR EHENS DAVID METAB OLIC PANEL albumin 4.1 g/dL 3.0-4. 4 Not Available [facility] (Lab) [address] [place], [address], 01/22/2022 15:11:25 01/23/20 22 01/22/2022 COMPR EHENS DAVID METAB OLIC PANEL globulin 3.2 g/dL 2.6-4. 2 Not Available [facility] (Lab) [address] [place], [address], 01/22/2022 15:11:25 01/23/20 22 01/22/2022 COMPR EHENS DAVID METAB OLIC PANEL A/G ratio 1.3 ratio 1.0-2. 0 Not Available [facility] (Lab) [address] [place], [address], 01/22/2022 15:11:25 09/02/19 24 09/02/2023 LIPID PANEL cholesterol 130 mg/dL 140-19 9 low NIH N[place]EL NSUS RECOM MENDA TION FOR LAURI STERO L: ADULT CHILD LOW RISK: <200 <170 BORDE RLINE : <200- 239 ----- HIGH RISK: >240 >200 Not Available [facility] (Lab) [address] [place], [address], 09/02/2023 18:21:55 09/02/19 24 09/02/2023 LIPID PANEL triglyceride s 186 mg/dL 0-150 high NIH NATANAEL NSUS REPOR T RECOM MENDA TION FOR TRIGL YCERI MIREYA: ADULT CHILD LOW RISK: <150 ----- BODER LINE: 150-1 99 ----- HIGH RISK: >200 ----- Not Available [facility] (Lab) [address] [place], [address], 09/02/2023 18:21:55 09/02/19 24 09/02/2023 LIPID PANEL HDL cholesterol 35 mg/dL 40- low Not Available [facility] (Lab) [address] [place], [address], 09/02/2023 18:21:55 09/02/19 24 09/02/2023 LIPID PANEL LDL cholesterol, calculated 58 mg/dL 0-130 NIH N[facility]EL NSUS REPOR T RECOM MENDA TIONS FOR LDL: ADULT CHILD LOW RISK <130 <110 (OPTI MAL LDL) <100 ----- BRENDAN RLINE : 130-1 59 ----- HIGH RISK: >160 >130 A TRIGL YCERI DE RESUL T >400 INVAL IDATE S THE CALCU LATIO N FOR LDL FRACT IONAT ION - THE LDL RESUL T WILL NOT BE REPOR JHOANA. Not Available [facility] (Lab) [address] [place], [address], 09/02/2023 18:21:55 09/02/19 24 09/02/2023 COMPR EHENS DAVID METAB OLIC PANEL sodium 133 mmol/ L 137-14 5 low Not Available [facility] (Lab) [address] [place], [address], 09/02/2023 18:22:00 09/02/1909/02/2023 COMPR EHENS DAVID METAB OLIC PANEL potassium 3.6 mmol/ L 3.5-5. 1 Not Available [facility] (Lab) [address] [place], [address], 09/02/2023 18:22:00 09/02/19 24 09/02/2023 COMPR EHENS DAVID METAB OLIC PANEL chloride 98 mmol/ L 98-107 Not Available [facility] (Lab) [address] [place], [address], 09/02/2023 18:22:00 09/02/19 24 09/02/2023 COMPR EHENS DAVID METAB OLIC PANEL carbon dioxide 29 mmol/ L 22-30 Not Available [facility] (Lab) [address] [place], [address], 09/02/2023 18:22:00 09/02/19 24 09/02/2023 COMPR EHENS DAVID METAB OLIC PANEL anion gap 9.6 mmol/ L 14-22 low Not Available [facility] (Lab) [address] [place], [address], 09/02/2023 18:22:00 09/02/19 24 09/02/2023 COMPR EHENS DAVID METAB OLIC PANEL glucose 101 mg/dL 70-99 high Not Available [facility] (Lab) [address] [place], [address], 09/02/2023 18:22:00 09/02/19 24 09/02/2023 COMPR EHENS DAVID METAB OLIC PANEL BUN 20 mg/dL 8-19 high Not Available [facility] (Lab) [address] [place], [address], 09/02/2023 18:22:00 09/02/19 24 09/02/2023 COMPR EHENS DAVID METAB OLIC PANEL creatinine 1.04 mg/dL 0.66-1 .25 Not Available [facility] (Lab) [address] [place], [address], 09/02/2023 18:22:00 09/02/19 24 09/02/2023 COMPR EHENS DAVID METAB OLIC PANEL GFR 50 Refer ence Range : [place] ge GFR Healt hy Adult : >60 mL/mi n/1.7 3 m2 Chron ic Kidne y Disea se: 15-60 mL/mi n/1.7 3 m2 Kidne y Failu re: <15/m L/min /1.73 m2 www.n iddk. nih.g ov The MDRD study equat ion has not been valid ated in child emmy <18 years of age; pregn ant women ; the elder ly >85 years of age; or in some racia l or ethni c subgr oups, such as Hispa nics. Outsi de the valid ated erick eters , estim ated GFR is less accur ate, requi ring clini caden judgm ent on a case- by-ca se basis . Clini caden inter preta tion for other races and ages must be made by the clini yojana. The MDRD study equat ion has not been valid ated for the evalu ation of serum creat inine relat ed to nutri jose carlos l statu s or medic ation usage . For perso ns <18 years of age, a pedia tric GFR calcu lator is avail able on the [facility] websi te: https ://ramiro w.paulette stringer.o rg/pr ofess ional s/kdo qi/gf r_cal culat or Not Available [facility] (Lab) [address] [place], [address], 09/02/2023 18:22:00 09/02/19 24 09/02/2023 COMPR EHENS DAVID METAB OLIC PANEL alkaline phosphatase 76 U/L 38-126 Not Available [facility] (Lab) [address] [place], [address], 09/02/2023 18:22:00 09/02/19 24 09/02/2023 COMPR EHENS DAVID METAB OLIC PANEL alanine aminotransfe rase 15 U/L 0-35 Not Available [facility] (Lab) [address] [place], [address], 09/02/2023 18:22:00 09/02/19 24 09/02/2023 COMPR EHENS DAVID METAB OLIC PANEL aspartate aminotransfe rase 26 U/L 15-37 Not Available [facility] (Lab) [address] [facility] [place], [address], 09/02/2023 18:22:00 09/02/19 24 09/02/2023 COMPR EHENS DAVID METAB OLIC PANEL bilirubin, total 0.30 mg/dL 0.20-1 .30 Not Available [facility] (Lab) [address] [place], [address], 09/02/2023 18:22:00 09/02/19 24 09/02/2023 COMPR EHENS DAVID METAB OLIC PANEL calcium 9.5 mg/dL 8.4-10 .2 Not Available [facility] (Lab) [address] [place], [address], 09/02/2023 18:22:00 09/02/19 24 09/02/2023 COMPR EHENS DAVID METAB OLIC PANEL total protein 6.9 g/dL 6.3-8. 2 Not Available [facility] (Lab) [address] [place], [address], 09/02/2023 18:22:00 09/02/19 24 09/02/2023 COMPR EHENS DAVID METAB OLIC PANEL albumin 4.0 g/dL 3.0-4. 4 Not Available [facility] (Lab) [address] [place], [address], 09/02/2023 18:22:00 09/02/19 24 09/02/2023 COMPR EHENS DAVID METAB OLIC PANEL globulin 2.9 g/dL 2.6-4. 2 Not Available [facility] (Lab) [address] [place], [address], 09/02/2023 18:22:00 09/02/19 24 09/02/2023 COMPR EHENS DAVID METAB OLIC PANEL A/G ratio 1.4 ratio 1.0-2. 0 Not Available [facility] (Lab) [address] [place], [address], 09/02/2023 18:22:00 09/02/19 24 09/02/2023 CBC/C OMPLE TE BLD COUNT W/DIF F white blood cells 7.9 x10'3 /uL 4.2-10 .8 Not Available [facility] (Lab) [address] [place], [address], 09/02/2023 18:25:07 09/02/19 24 09/02/2023 CBC/C OMPLE TE BLD COUNT W/DIF F red blood cells 4.32 x10'6 /uL 3.80-5 .20 Not Available [facility] (Lab) [address] [place], [address], 09/02/2023 18:25:07 09/02/19 24 09/02/2023 CBC/C OMPLE TE BLD COUNT W/DIF F hemoglobin 12.4 g/dL 12.0-1 5.6 Not Available [facility] (Lab) [address] [place], [address], 09/02/2023 18:25:07 09/02/19 24 09/02/2023 CBC/C OMPLE TE BLD COUNT W/DIF F hematocrit 37.8 % 35.7-4 5.7 Not Available [facility] (Lab) [address] [place], [address], 09/02/2023 18:25:07 09/02/19 24 09/02/2023 CBC/C OMPLE TE BLD COUNT W/DIF F mean red cell volume 87.5 fL 82.0-9 9.0 Not Available [facility] (Lab) [address] [place], [address], 09/02/2023 18:25:07 09/02/19 24 09/02/2023 CBC/C OMPLE TE BLD COUNT W/DIF F mean red cell hemoglobin 28.7 pg 27.0-3 3.0 Not Available [facility] (Lab) [address] [place], [address], 09/02/2023 18:25:07 09/02/19 24 09/02/2023 CBC/C OMPLE TE BLD COUNT W/DIF F mean RBC HGB concentratio n 32.8 g/dL 31.0-3 6.0 Not Available [facility] (Lab) [address] [place], [address], 09/02/2023 18:25:07 09/02/19 24 09/02/2023 CBC/C OMPLE TE BLD COUNT W/DIF F red cell distribution width 12.3 % 11.8-1 5.5 Not Available [facility] (Lab) [address] [place], [address], 09/02/2023 18:25:07 09/02/19 24 09/02/2023 CBC/C OMPLE TE BLD COUNT W/DIF F platelets 350 x10'3 /uL 150-40 0 Not Available [facility] (Lab) [address] [place], [address], 09/02/2023 18:25:07 09/02/19 24 09/02/2023 CBC/C OMPLE TE BLD COUNT W/DIF F mean platelet volume 10.4 fL 9.0-12 .4 Not Available [facility] (Lab) [address] [place], [address], 09/02/2023 18:25:07 09/02/19 24 09/02/2023 CBC/C OMPLE TE BLD COUNT W/DIF F neutrophils 51.0 % 39.0-7 2.0 Not Available [facility] (Lab) [address] [place], [address], 09/02/2023 18:25:07 09/02/19 24 09/02/2023 CBC/C OMPLE TE BLD COUNT W/DIF F lymphocytes 35.1 % 16.0-4 7.0 Not Available [facility] (Lab) [address] [place], [address], 09/02/2023 18:25:07 09/02/19 24 09/02/2023 CBC/C OMPLE TE BLD COUNT W/DIF F monocytes 8.7 % 5.0-12 .0 Not Available [facility] (Lab) [address] [place], [address], 09/02/2023 18:25:07 09/02/19 24 09/02/2023 CBC/C OMPLE TE BLD COUNT W/DIF F eosinophils 3.4 % 1.0-7. 0 Not Available [facility] (Lab) [address] [place], [address], 09/02/2023 18:25:07 09/02/19 24 09/02/2023 CBC/C OMPLE TE BLD COUNT W/DIF F basophils 0.9 % 0.0-2. 0 Not Available [facility] (Lab) [address] [place], [address], 09/02/2023 18:25:07 09/02/19 24 09/02/2023 CBC/C OMPLE TE BLD COUNT W/DIF F immature granulocytes 0.9 % 0.00-0 .50 high Not Available [facility] (Lab) [address] [place], [address], 09/02/2023 18:25:07 09/02/19 24 09/02/2023 CBC/C OMPLE TE BLD COUNT W/DIF F neutrophils, absolute count 4.05 x10'3 /uL 1.5-8. 0 Not Available [facility] (Lab) [address] [place], [address], 09/02/2023 18:25:07 01/11/09/02/2023 CBC/C OMPLE TE BLD COUNT W/DIF F lymphocytes, absolute count 2.78 x10'3 /uL 1.07-3 .43 Not Available [facility] (Lab) [address] [place], [address], 09/02/2023 18:25:07 09/02/19 24 09/02/2023 CBC/C OMPLE TE BLD COUNT W/DIF F monocytes, absolute count 0.69 x10'3 /uL 0.29-0 .99 Not Available [facility] (Lab) [address] [place], [address], 09/02/2023 18:25:07 09/02/19 24 09/02/2023 CBC/C OMPLE TE BLD COUNT W/DIF F eosinophils, absolute count 0.27 x10'3 /uL 0.02-0 .53 Not Available [facility] (Lab) [address] [place], [address], 09/02/2023 18:25:07 09/02/19 24 09/02/2023 CBC/C OMPLE TE BLD COUNT W/DIF F basophils, absolute count 0.07 x10'3 /uL 0.01-0 .08 Not Available [facility] (Lab) [address] [place], [address], 09/02/2023 18:25:07 09/02/19 24 09/02/2023 CBC/C OMPLE TE BLD COUNT W/DIF F immature granulocytes ,absolute 0.07 x10'3 /uL 0.00-0 .05 high Not Available [facility] (Lab) [address] [place], [address], 09/02/2023 18:25:07 09/02/19 24 09/02/2023 CBC/C OMPLE TE BLD COUNT W/DIF F nucleated red blood cells 0.0 % -0 Not Available [facility] (Lab) [address] [place], [address], 09/02/2023 18:25:07 09/02/19 24 09/02/2023 CBC/C OMPLE TE BLD COUNT W/DIF F NRBC# 0.00 x10'3 /uL Not Available [facility] (Lab) [address], [place], [address], 09/02/2023 18:25:07 07/07/20 22 07/06/2022 DEXA No observ ation record ed. [id number], [place], [address], 10/21/2022 02:56:07 09/03/19 23 09/03/2022 DEXA No observ ation record ed. [id number] [facility] [address], [place], [address], 10/21/2022 02:56:07 06/18/20 23 06/18/2023 MAMMO , scree chris, digit al, bilat eral [facility] [address] [facility] [place] [address] [phone] Patien t Name: AMIE SILVA Access ion #: [id number] Sex: F : 1939 4 Dictat ed By: Sarah Lisa Attend ing Physic terrence: LUIS DURÁN Orderi Physic terrence: LUIS DURÁN Exam Date: Exam Name: MG SCRN BREAST HILTON BILAT Admitt ing Diagno sis(es ): SCREEN ING MAMMOG DAVON WITH TOMOSY NTHESI S: REASON FOR EXAM: SCREEN ING MAMMOG DAVON COMPAR TERESA:1 022 TECHNI QUE: Bilate ral CC and MLO views obtain ed. Images were obtain ed using a Digita l Tomosy nthesi s Unit. Standa rd 2D and 3D Tomosy nthesi s images were review ed. FINDIN GS: BREAST COMPOS ITION: The bilate ral breast s are almost entire ly fatty. In the right breast , no asymme trical parenc hymal patter n, susanne ectura l distor tion, pleomo rphic microc alcifi cation s or masses . In the left breast , no asymme trical parenc hymal patter n, susanne ectura l distor tion, pleomo rphic microc alcifi cation s or masses . IMPRES SRINIVAS: No findin gs of malign nadya. Recomm end annual mammog davon. BIRADS : 2 - Benign Electr onical ly Signed by: Sarah Lisa at 2022 15:32: 13 PM Page 1 [facility] (Imaging) [address] [place], [address], 09/09/2023 09:57:35 07/29/2006/18/2023 screyang pastoras t [place], bilat [facility] [address] [place] [address] Patien t Name: AMIE SILVA Access ion #: [id number] Sex: F : 1939 4 Dictat ed By: Sarah Lisa Attend ing Physic terrence: LUIS DURÁN Orderi Physic terrence: LUIS DURÁN Exam Date: 2022 14:36 PM Exam Name: MG SCRN BREAST [place] BILAT Admitt ing Diagno sis(es ): SCREEN ING MAMMOG DAVON WITH TOMOSY NTHESI S: REASON FOR EXAM: SCREEN ING MAMMOG DAVON COMPAR TERESA:1 022 TECHNI QUE: Bilate ral CC and MLO views obtain ed. Images were obtain ed using a Digita l Tomosy nthesi s Unit. Standa rd 2D and 3D Tomosy nthesi s images were review ed. FINDIN GS: BREAST COMPOS ITION: The bilate ral breast s are almost entire ly fatty. In the right breast , no asymme trical parenc hymal patter n, susanne ectura l distor tion, pleomo rphic microc alcifi cation s or masses . In the left breast , no asymme trical parenc hymal patter n, susanne ectura l distor tion, pleomo rphic microc alcifi cation s or masses . IMPRES SRINIVAS: No findin gs of malign nadya. Recomm end annual mammog davon. BIRADS : 2 - Benign Electr onical ly Signed by: Sarah Lisa at 2022 15:32: 13 PM Page 1 [email or web address] [facility] ([facility]) [address] [place], [address], 08/03/2023 10:22:59 Result Notes None recorded. 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 Not Available [facility] 4 05:57:01 Dyslipidem ia 261766765 Active 2016 Not Available [facility] 4 05:57:01 Solitary nodule of lung 247626319 Active Not Available [facility] 4 05:57:01 Cough 51729845 Active 2021 Not Available [facility] 4 05:57:01 Essential hypertensi on 85640013 Active Not Available [facility] 4 05:57:01 Loose body in knee 69476536 Active Not Available [facility] 4 05:57:01 Systolic murmur 80272919 Active 2022 Not Available [facility] 4 05:57:01 Acute sinusitis [id number] Active 2022 Not Available [facility] 4 05:57:01 Notes:Some problems listed i n Continuity of Care Document #[id number] could not be added to this patient's chart. Please review this document and add these problems to the patient's chart manually as needed. Problem Notes None recorded. Procedures Surgical History Date Name Laterality Status Provider Name and Address Organization Details Recorded Time 03/22/20 23 Medicare Wellness CPT Code, subsequent completed CLARITZA Castro - [facility] [employer] 03/22/2023 14:34:54 05/12/20 18 Most Recent Bone Density completed Not Available [facility] 10/21/2022 02:42:53 02/13/20 15 Knee arthroscopy/naresh lupe completed Not Available [facility] 10/21/2022 02:42:54 10/01/19 09 Date of Last Colonoscopy completed Not Available [facility] 10/21/2022 02:42:52 Orthopedic Surgery completed Not Available [facility] 10/21/2022 02:42:54 Cataract Surgery completed Not Available [facility] 10/21/2022 02:42:54 Removal of ovary(s) completed Not Available [facility] 10/21/2022 02:42:54 Imaging Results None recorded. Procedure Notes None recorded. Medical Equipment None Reported. Allergies Allergen ID Allergen Name Allergen Category Reaction Reaction Severity Criticality Documentation Date Start Date Code Code System Note Provider Name and Address Organization Details Recorded Time 4372 prednison e medicatio n Not available Not available Not available 10/21/2022 8640 RxNorm makes her shaky Not Available [facility] 3 02:55:48 4373 cefdinir medicatio n Not available Not available Not available 10/21/2022 48500 RxNorm makes her shaky Not Available [facility] 3 02:55:48 Medications Name Sig Start Date Stop Date Status Note LastModified by Organization Details LastModified Time amoxicill in 500 mg capsule Take 1 capsule 3 times a day by oral route for 7 days. active Not Available Not Available No t Available atorvasta tin 40 mg tablet active Not Available Not Available Not Available azelastin e 0.05 % eye drops 02/18 completed Not Available Not Available Not Available doxycycli ne hyclate 100 mg capsule TAKE 1 CAPSULE BY MOUTH TWICE DAILY FOR 7 DAYS active Not Available Not Available No t Available azithromy pippa 250 mg tablet TAKE 2 TABLETS BY MOUTH ON DAY 1 AND THEN TAKE 1 TABLET BY MOUTH ONCE A DAY ON DAY 2 THROUGH DAY 5 05/19 completed Not Available Not Available Not Available sulfameth oxazole 400 mg-trimet hoprim 80 mg tablet 02/18 completed Not Available Not Available Not Available hydrocodo ne 5 mg-acetam inophen 325 mg tablet 06/19 completed Not Available Not Available Not Available meloxicam 15 mg tablet TAKE 1 TABLET BY MOUTH ONCE DAILY 09/06 completed Not Available Not Available Not Available Medrol (Daniel) 4 mg tablets in a dose pack us as directed 03/05 completed Not Available Not Available Not Available prednison e 20 mg tablet Take 2 tablets every day by oral route for 5 days. 03/30 completed Not Available Not Available Not Available fluoroura cil 5 % topical cream 06/25 completed Not Available Not Available Not Available cromolyn 4 % eye drops 02/18 completed Not Available Not Available Not Available aspirin 81 mg tablet,de layed release Take 1 tablet every day by oral route. 2020 active Not Available Not Available Not Avai lable tramadol 50 mg tablet 10/23 completed Not Available Not Available Not Available dexametha sone sodium phosphate 0.1 % eye drops 06/25 completed Not Available Not Available Not Available meloxicam 7.5 mg tablet 09/11 completed Not Available Not Available Not Available losartan 100 mg-hydroc hlorothia zide 25 mg tablet TAKE 1 TABLET BY MOUTH ONCE DAILY DIRECTED 08/08 completed Not Available Not Available Not Available ciproflox acin 0.3 % eye drops 06/25 completed Not Available Not Available Not Available meclizine 25 mg tablet Take 1 tablet twice a day by oral route. active Not Available Not Available No t Available neomycin- polymyxin -dexameth 3.5 mg/mL-10, 000 unit/mL-0 .1% eye drops 06/25 completed Not Available Not Available Not Available metoprolo l tartrate 50 mg tablet active Not Available Not Available Not Available diclofena c potassium 50 mg tablet TAKE 1 TABLET BY MOUTH TWICE DAILY 06/28 completed Not Available Not Available Not Available omeprazol e 20 mg capsule,d elayed release active Not Available Not Available Not Available hydrochlo rothiazid e 25 mg tablet active Not Available Not Available Not Available mupirocin 2 % topical ointment APPLY OINTMENT TOPICALL Y TO THE AFFECTED AREA(S) TWICE DAILY 03/22 completed Not Available Not Available Not Available levofloxa pippa 500 mg tablet 03/20 completed Not Available Not Available Not Available Vitamin D2 1,250 mcg (50,000 unit) capsule TAKE ONE CAPSULE BY MOUTH ONCE A MONTH active Not Available Not Available No t Available losartan 50 mg-hydroc hlorothia zide 12.5 mg tablet Take 1 tablet every day by oral route. 11/11 completed Not Available Not Available Not Available cefdinir 300 mg capsule Take 1 capsule every 12 hours by oral route for 10 days. 05/08 completed Not Available Not Available Not Available losartan 100 mg tablet active Not Available Not Available Not Available fluticaso ne propionat e 50 mcg/actua tion nasal spray,genaro pension [place] 1 spray every day by intranas al route. active Not Available Not Available No t Available diazepam 5 mg tablet Take 1/2 (one-alin f) tablet by mouth twice daily active Not Available Not Available No t Available neomycin 3.5 mg/g-poly myxin B 10,000 unit/g-de xameth 0.1 % eye oint 11/11 completed Not Available Not Available Not Available valsartan 160 mg-hydroc hlorothia zide 25 mg tablet TAKE ONE TABLET BY MOUTH ONCE DAILY active Not Available Not Available No t Available enoxapari n 40 mg/0.4 mL subcutane ous syringe 09/11 completed Not Available Not Available Not Available olmesarta n 20 mg-hydroc hlorothia zide 12.5 mg tablet Take 1 tablet every day by oral route. 03/29 completed changed to Losartan 50/12.5 Not Available Not Available Not Available metoprolo l tartrate 25 mg tablet TAKE 1 TABLET BY MOUTH IN THE MORNING AND 1/2 (ONE-ALIN F) IN THE EVENING 09/06 completed Not Available Not Available Not Available TriLyte With Flavor Packets 420 gram oral solution 07/06 completed Not Available Not Available Not Available Calcium 600 BID 2020 active Not Available Not Available Not Avai lable Vitamin D3 5000 IU daily 2020 active Not Available Not Available Not Avai lable multivita min 2020 active Not Available Not Available Not Avai lable Allergy Relief (cetirizi ne) 2020 active Not Available Not Available Not Avai lable Tobradex ST 0.3 %-0.05 % eye drops,genaro pension 07/13 completed Not Available Not Available Not Available Ilevro 0.3 % eye drops,genaro pension 06/25 completed Not Available Not Available Not Available Eliquis 2.5 mg tablet 02/18 completed Not Available Not Available Not Available Fluvirin 1397-3722 45 mcg (15 mcg x 3)/0.5 mL intramusc ular suspensio n active Not Available Not Available Not Available Fluzone High-Dose 2013- (PF) 180 mcg/0.5 mL intramusc ular syringe active Not Available Not Available Not Available Pazeo 0.7 % eye drops 11/11 completed Not Available Not Available Not Available Fluzone High-Dose 2014- (PF) 180 mcg/0.5 mL intramusc ular syringe active Not Available Not Available Not Available Fluzone High-Dose 9499-8467 (PF) 180 mcg/0.5 mL intramusc ular syringe 06/25 completed Not Available Not Available Not Available Fluzone High-Dose (PF) 180 mcg/0.5 mL intramusc ular syringe ADM 0.5ML IM UTD 09/11 completed Not Available Not Available Not Available Fluad Quad (65yr up)(PF) 60 mcg (15 mcg x 4)/0.5mL IM syringe ADMINIST ER 0.5ML IN THE MUSCLE DIRECTED 07/08 completed Not Available Not Available Not Available Vitals Date Recorded Body mass index (BMI) Body height Heart rate Body temperature Body weight Systolic blood pressure Diastolic blood pressure Provider Name and Address Organization Details Last Updated DateTime 3 26.7 kg/m2 157.48 cm 98 /min 97.2 [degF] 39137.4 9 g 142 mm[Hg] 80 mm[Hg] Not Available [facility] 3 02:47:24 Date Recorded Body mass index (BMI) Body height Heart rate Body temperature Body weight Systolic blood pressure Diastolic blood pressure Provider Name and Address Organization Details Last Updated DateTime 2 26 kg/m2 157.48 cm 78 /min 97.9 [degF] 05864.1 2 g 138 mm[Hg] 76 mm[Hg] Not Available [facility] 3 02:47:24 Date Recorded Body mass index (BMI) Body height Heart rate Body temperature Body weight Systolic blood pressure Diastolic blood pressure Provider Name and Address Organization Details Last Updated DateTime 2 26 kg/m2 157.48 cm 60 /min 96.8 [degF] 43003.1 2 g 130 mm[Hg] 70 mm[Hg] Not Available [facility] 3 02:47:24 Date Recorded Body height Body mass index (BMI) Body weight Body temperature Heart rate Systolic blood pressure Diastolic blood pressure Provider Name and Address Organization Details Last Updated DateTime 3 157.48 cm 25.8 kg/m2 49851.5 2 g 97.9 [degF] 74 /min 120 mm[Hg] 80 mm[Hg] ZACKARY Young [place] [facility] [place] [employer] [facility] 3 14:11:44 Date Recorded Body mass index (BMI) Body height Heart rate Body temperature Body weight Systolic blood pressure Diastolic blood pressure Provider Name and Address Organization Details Last Updated DateTime 2 26.7 kg/m2 157.48 cm 78 /min 97 [degF] 24354.4 9 g 128 mm[Hg] 80 mm[Hg] Not Available [facility] 3 02:47:24 Social History Question Answer Notes LastModified by Organizat ion Details LastModified Time Tobacco Smoking Status Never Smoker Not Available [facility] 10/21/2022 02:40:35 Do You Have An Advance Directive? Yes Patient To Bring Copy For Chart. [id number] Information not available 10/21/2022 Are You Blind Or Do You Have Difficulty Seeing? No MIGRATION.88360 66329 Information not available 10/21/2022 What Is Your Level Of Caffeine Consumption? Occasional Soda MIGRATION.16223 46045 Information not available 10/21/2022 How Much Tobacco Do You Chew? None MIGRATION.00469 67707 Information not available 10/21/2022 In The 14 Days Before Symptom Onset, Have You Had Close Contact With A Laboratory-confi rmed COVID-19 While That Case Was Ill? No MIGRATION.58580 61353 Information not available 10/21/2022 In The 14 Days Before Symptom Onset, Have You Had Close Contact With A Person Who Is Under Investigation For COVID-19 While That Person Was Ill? No MIGRATION.71294 94249 Information not available 10/21/2022 Are You Deaf Or Do You Have Serious Difficulty Hearing? No MIGRATION.30082 51452 Information not available 10/21/2022 What Type Of Diet Are You Following? REGULAR MIGRATION.66756 17201 Information not available 10/21/2022 Which Illicit Or Recreational Drugs Have You Used? None MIGRATION.87263 67696 Information not available 10/21/2022 What Is The Highest Grade Or Level Of School You Have Completed Or The Highest Degree You Have Received? [id number] MIGRATION.86799 40031 Information not available 10/21/2022 Have There Been Any Changes To Your Family Or Social Situation? No MIGRATION.08747 50181 Information not available 10/21/2022 What Is The Fluoride Status Of Your Home? Unknown MIGRATION.53851 27877 Information not available 10/21/2022 Are There Any Guns Present In Your Home? No MIGRATION.51372 78765 Information not available 10/21/2022 Do You Use Insect Repellent Routinely? No MIGRATION.96212 99987 Information not available 10/21/2022 [facility] MIGRATION.27989 66066 Information not available 10/21/2022 Presence Of Domestic Violence No Information not available 03/22/2023 Are You Able To Care For Yourself? Yes [email or web address] Information not available 03/22/2023 Are You Blind Or Do Yo Have Difficulty Seeing? No [email or web address] Information not available 03/22/2023 Are You Deaf Or Do You Have Serious Difficulty Hearing? Yes Wears Hearing Aids Information not available 03/22/2023 General Stress Level? Moderate [email or web address] Information not available 03/22/2023 Live Alone Of With Others? Alone [email or web address] Information not available 03/22/2023 Do You Have A Medical Power Of Development Disability Specialist? Yes MIGRATION.09197 90055 Information not available 10/21/2022 What Was The Date Of Your Most Recent Tobacco Screening? 03/22/2023 [email or web address] Information not available 03/22/2023 Have You Ever Been Counseled For Unhealthy Alcohol Use? No MIGRATION.06909 26625 Information not available 10/21/2022 Do You Have Any Pets? No MIGRATION.93489 27162 Information not available 10/21/2022 What Is Your Relationship Status? MIGRATION.45058 46929 Information not available 10/21/2022 Do You Use Your Seat Belt Or Car Seat Routinely? Yes MIGRATION.92521 73699 Information not available 10/21/2022 Do You Have Smoke And Carbon Monoxide Detectors In Your Home? Yes MIGRATION.35441 90428 Information not available 10/21/2022 Are You Passively Exposed To Smoke? No MIGRATION.13820 66745 Information not available 10/21/2022 Are There Any Smokers In Your House? No MIGRATION.48196 33027 Information not available 10/21/2022 How Much Tobacco Do You Smoke? No MIGRATION.53715 83226 Information not available 10/21/2022 What Types Of Sporting Activities Do You Participate In? None MIGRATION.80139 36009 Information not available 10/21/2022 Do You Use Sunscreen Routinely? Yes MIGRATION.00480 55815 Information not available 10/21/2022 Has Tobacco Cessation Counseling Been Provided? No MIGRATION.92751 27919 Information not available 10/21/2022 How Many Years Have You Smoked Tobacco? 0 MIGRATION.46203 77633 Information not available 10/21/2022 Have You Recently Traveled Abroad? No MIGRATION.39028 79233 Information not available 10/21/2022 Do You Have Difficulty Walking Or Climbing Stairs? No MIGRATION.33756 44273 Information not available 10/21/2022 Do You Have Any Dietary Restrictions? No MIGRATION.25865 44404 Information not available 10/21/2022 Sex: Female Functional Status Question Answer Note LastModified by Organizat ion Details LastModified Time Do you use any illicit or recreational drugs? No MIGRATION.88603 02970 Information not available 10/21/2022 Do you or have you ever used any other forms of tobacco or nicotine? No MIGRATION.60759 52548 Information not available 10/21/2022 What is your level of alcohol consumption? Occasional wine around the holidays MIGRATION.21092 07874 Information not available 10/21/2022 Do you or have you ever used smokeless tobacco? Never used smokeless tobacco MIGRATION.60966 12524 Information not available 10/21/2022 Do you have transportation difficulties? No MIGRATION.52972 73177 Information not available 10/21/2022 Are you able to walk? [place] MIGRATION.63945 38209 Information not available 10/21/2022 Do you have difficulty doing errands alone? No MIGRATION.58432 79304 Information not available 10/21/2022 Are you able to care for yourself? Yes MIGRATION.84909 16702 Information not available 10/21/2022 What is your occupation? retired MIGRATION.81614 54345 Information not available 10/21/2022 Do you have difficulty dressing or bathing? No MIGRATION.48787 91075 Information not available 10/21/2022 Do you or have you ever used e-cigarettes or vape? Never used electronic cigarettes MIGRATION.35834 50372 Information not available 10/21/2022 What is your exercise level? Moderate walking MIGRATION.36412 26017 Information not available 10/21/2022 Mental Status Question Answer Note LastModified by Organizat ion Details LastModified Time Do you feel stressed (tense, restless, nervous, or anxious, or unable to sleep at night)? [id number] MIGRATION.[id number] 26 Information not available 10/21/2022 Do you have difficulty concentrating, remembering or making decisions? No MIGRATION.52167652 26 Information not available 10/21/2022 Family History Relationship Description Onset Age of this Age Resolved Age Notes LastModified by Organization Details LastModified Time Mother Malignant tumor of colon [id number] Not available 10/21/2022 02:42:59 Mother Heart disease MIGRATION.[id number] Not available 10/21/2022 02:42:59 Medical History Condition Response NERVE DISEASE N BLINDNESS N RHEUMATIC FEVER N KIDNEY STONES N BLADDER PROBLEMS N OTHER # 1 N POLIO N LUNG DISEASE/DISORDER Y COPD N RADIATION / CHEMOTHERAPY N Other # 2 N BLOOD DISEASES N SURGERY N EAR OR HEARING PROBLEMS N MUMPS N BOWEL PROBLEMS N DEPRESSION (INCLUDING POST ) N STROKE/TIA N ULCERS N BENIGN PROSTATIC HYPERPLASIA N MEASLES N MYOCARDIAL INFARCTION N OBESITY N GERD/NAUSEA Y ANEURYSM N URINARY/BLADDER/KIDNEY PROBLEMS N INPATIENT PSYCH CARE N CORONARY ARTERY DISEASE (CAD) N ADDICTION CONCERNS N ENDOMETRIOSIS N Impotence N USE OF BLOOD THINNERS N SKIN PROBLEMS N GASTROINTESTINAL DISORDER N PERIPHERAL VASCULAR DISEASE N MUSCLE,JOINT OR BONE PROBLEMS N GASTROINTESTINAL BLEEDING N BLOOD CLOTS N ASTHMA N CATARACTS N ERECTILE DYSFUNCTION N VARICOSITIES N GI PROBLEMS N Low Testosterone N INFERTILITY N AIDS/HIV N LIVER DISEASE N MALE HYPOGONADISM N HYPERTENSION Y Deficiency Y ANXIETY DISORDER Y BLOOD TRANSFUSION N ANEMIA/BLOOD DISORDER N CHRONIC EAR INFECTIONS N BRONCHITIS N TUBERCULOSIS N GLAUCOMA N FOOT PROBLEM N DIVERTICULITIS N SLEEP APNEA N CHICKENPOX N INFECTIOUS DISEASE N HEART ARRHYTHMIA N PROSTATE N INSOMNIA N HIGH CHOLESTEROL / HYPERLIPIDEMIA Y HYPERTHYROIDISM N EYE PROBLEMS N NEUROLOGICAL PROBLEMS N EDEMA N CHRONIC PAIN SYNDROME N HYPOTHYROIDISM N CAROTID BLOCKAGE N CONSTIPATION N BACK / NECK PROBLEMS N HAVE YOU BEEN HOSPITALIZED OR SEEN IN [facility] IN THE PAST YEAR ? N ATHEROSCLEROSIS N BREAST PROBLEMS N DIALYSIS N ECZEMA N OSTEOPOROSIS N ARTHRITIS Y APPENDICITIS N DIABETES, TYPE N BAD TEETH N ENT N HEARTBURN / REFLUX N AUTISM SPECTRUM DISORDER (ASD) N HEPATITIS / LIVER DISEASE N PULMONARY DISEASE N GOUT N SLEEP DISORDER N ALZHEIMER'S DISEASE N Brain Problems N HERPES N DEMENTIA N HEADACHES/MIGRAINES N SEIZURES/EPILEPSY N VASCULAR DISEASE N PACEMAKER N Blood Disorder N DIZZINESS Y HEART DISEASE/HEART PROBLEMS N KIDNEY DISEASE N MULTIPLE SCLEROSIS N CARDIAC ARRHYTHMIA N CANCER: SPECIFY N ANESTHESIA COMPLICATIONS N ATRIAL FIBRILLATION N Gall Stones N PULMONARY EMBOLISM N AUTOIMMUNE DISEASE N Gynecological History Statement/Question Response Date of Last Pap Date of Last Mammogram 06/05/2021 Date of Last Colonoscopy 10/01/2008 Most Recent Bone Density 05/12/2018 Obstetrics History GPAL:G 2 P 0 0 0 0 Immunizations Vaccine Type Date Status Note Provider Nam e and Address Organization Details Recorded Time Influenza, high-dose, quadrivalent, PF 9 completed Not Available [facility] 09/06/2023 05:57:01 influenza, unspecified formulation 8 completed Not Available [facility] 09/06/2023 05:57:01 Influenza, high-dose, trivalent, PF 7 completed Not Available [facility] 09/06/2023 05:57:01 Influenza, high-dose, trivalent, PF 6 completed Not Available [facility] 09/06/2023 05:57:01 COVID-19, mRNA, LNP-S, PF, 100 mcg/0.5mL dose or 50 mcg/0.25mL dose 1 completed Not Available [facility] 09/06/2023 05:57:01 COVID-19, mRNA, LNP-S, PF, 100 mcg/0.5mL dose or 50 mcg/0.25mL dose 1 completed Not Available [facility] 09/06/2023 05:57:01 COVID-19, mRNA, LNP-S, PF, 100 mcg/0.5mL dose or 50 mcg/0.25mL dose 1 completed Not Available [facility] 09/06/2023 05:57:01 Influenza, high-dose, quadrivalent, PF 0 completed Not Available [facility] 09/06/2023 05:57:01 Influenza, high-dose, trivalent, PF 5 completed Not Available [facility] 09/06/2023 05:57:01 zoster live 1 completed Not Available [facility] 09/06/2023 05:57:01 pneumococcal polysaccharide PPV23 9 completed Not Available [facility] 09/06/2023 05:57:01 Influenza, high-dose, quadrivalent, PF 1 completed Not Available [facility] 09/06/2023 05:57:01 Pneumococcal conjugate PCV 13 1 completed Not Available [facility] 09/06/2023 05:57:01 SARS-COV-2 (COVID-19) vaccine, UNSPECIFIED 3 completed Not Available [facility] 09/06/2023 05:57:01 Past Encounters Encounter ID Performer Location Encounter Start Date Encounter Closed Date Diagnosis/Indication Diagnosis SNOMED-CT Code Diagnosis ICD10 Code Diagnosis Note [id number] Matthieu Durán MD [facility] Internal Med [facility] [address] [place] , [address] [address] 11/04/2020 00:00:00 11/23/2020 12:22:06 [id number] Matthieu Durán MD [facility] Internal Med [facility] [address] [facility] [place] [address] 01/02/2021 00:00:00 01/02/2021 22:09:35 [id number] Matthieu Durán MD [facility] Internal Med [facility] [address] [place] , [address] [address] 01/08/2021 00:00:00 01/08/2021 21:53:07 [id number] Matthieu Durán MD [facility] Internal [facility] [address] [facility] [address] [place] [address] 01/29/2021 00:00:00 01/29/2021 21:51:19 [id number] Matthieu Durán MD [facility] Internal Med [facility] 15 [address] [facility] [address] [address] 05/19/2021 00:00:00 06/08/2021 15:25:24 [id number] Matthieu Durán MD [facility] Internal Med [facility] [address] [place] [address]., [address] [address] 09/22/2021 00:00:00 09/25/2021 21:13:46 [id number] Matthieu Durán MD [facility] Internal Med [facility] 15 [address] [facility] [address] [address] 12/03/2021 00:00:00 01/03/2022 17:52:56 [id number] Matthieu Durán MD [facility] Internal Med [facility] 15 [address] [facility] [address] [address] 01/12/2022 00:00:00 01/19/2022 16:55:21 [id number] Matthieu Durán MD [facility] Internal Med [facility] 15 [address] [facility] [address] [address] 05/18/2022 00:00:00 05/20/2022 08:27:09 [id number] Matthieu Durán MD [facility] Internal Med [facility] 15 [address] [facility] [address] [address] 09/21/2022 00:00:00 10/05/2022 22:23:49 [id number] Matthieu Durán MD [facility] Internal [facility] 15 [address] [facility] [address] [address] 03/22/2023 13:54:44 03/22/2023 15:10:08 Adult health examination [id number] Z00.00 Screening for disorder 390883430 Z13.9 Essential hypertension 45034896 I10 Systolic murmur 57133589 R01.1 Dyslipidemia 491992296 E 78.5 Health Concerns Section Related Observation LastModified by Organization Detai ls LastModified Time None Recorded Concern Status LastModified by Organization Details LastModified Time None Recorded Advance Directives Directive Y: Patient to bring copy for chart. Payers Encounter Date Sequence Insurance Name Policy Number Policy Arizmendi Covered Member ID Arizmendi Member ID Guarantor Name 03/22/2023 1 [place] Vicky A Yordan [id number] Vicky A Yordan 03/22/2023 2 [place] [id number] Vicky A Yordan [id number] Vicky A Yordan Notes Date Note Type Note Provider Name and Address Organization Details Recorded Time 03/22/2023 text/html Hypertension no headache no dizziness. Hyperlipidemia Try to follow low-fat diet. GERD no nausea no vomiting. Wellness completed Matthieu Durán MD [address] [place] [address], [facility] [address], [place], [address], [place] [facility] [email or web address] [facility] [employer] 03/22/2023 22:14:15 OBGyn Episode No OBEpisode recorded.
--- OUTSIDE RECORDS SUMMARY | 2025-01-17 13:51 | XMS_ITS | Clinical Summary ---
Author Organization [facility] Address [address] [place] [address] Care Team Providers Care Sport Shoe Spike Assembler Name Role Phone Harrison Durán MD Primary Care Provider [phone] Source Comments [facility],non-owned Affiliates and Associated Physician Practices is amultiple site organization consisting of ambulatory clinics and hospital sitesin [place], [place], [place] and [place]. This disclosure is being madepursuant to the Care Everywhere program and may not contain all information available regarding this patient. Last updated 18.[facility] Allergies Active Allergy Reactions Criticality Noted Date Comments Cefdinir Other 09/04/2019 Prednisone Other 09/04/2019 Medications * Be aware that medications may not be up to date on this document. Alwaysverify current medications with the patient. omeprazole (PRILOSEC) 20 MG capsule Take 20 mg by mouth daily before breakfast Active losartan (COZAAR) 100 MG tablet Take 100 mg by mouth once daily Active aspirin (ASPIRIN) 81 MG chew tablet Take 81 mg by mouth once daily Active multivitamin daily tablet Take 1 tablet by mouth daily with food Active metoprolol tartrate (LOPRESSOR) 50 MG tabletIndicati ons:Takes 1 Q morning & half tablet at bedtime. Unsure dose Take 50 mg by mouth 2 times daily Reasons: Takes 1 Q morning & half tablet at bedtime. Unsure dose Active aluminum & magnesium hydroxide (MAALOX) 200-200 MG/5ML suspension Take 15 mL by mouth every 4 hours as needed for Heartburn 9 Active acetaminophen (TYLENOL) 325 MG tablet Take 2 tablets by mouth every 6 hours as needed Maximum allowable Acetaminophen amount = 4 Grams (4000 mg) / 24 hours. 9 Active atorvastatin (LIPITOR) 40 MG tablet Take 40 mg by mouth at bedtime Active hydroCHLOROthi azide (HYDRODIURIL) 25 MG tablet Take 25 mg by mouth once daily 0 Active calcium 200 MG tablet Take 200 mg by mouth once daily Active VITAMIN D, CHOLECALCIFERO L, PO Take by mouth once daily Active Active Problems Problem Noted Date Diagnosed Date Liver lesion 08/19/2019 Uterine fibroid 08/18/2019 Renal cyst 08/18/2019 Acute blood loss anemia 08/18/2019 Impaired mobility and ADLs 08/18/2019 Open left ankle fracture, type I or II, initial encounter 08/15/2019 Open fracture of tibia and f ibula, shaft, right, type I or II, with routine healing, subsequent encounter Social History Tobacco Use Types Packs/Day Years Used Date Smoking Tobacco: Never Smokeless Tobacco: Never Alcohol Use Standard Drinks/Week Comments Not Currently 0 (1 standard drink = 0.6 oz pur e alcohol) AUDIT-C Answer Date Recorded Frequency of Alcohol Consumption Never 08/16/2019 Average Number of Drinks Not on file 019 Frequency of Binge Drinking Never 07/24 Comments No Sex and Gender Information Value Date Recorded Sex Assigned at Not on file Legal Sex Female 6:32 AM TOP TILE DECORATOR Gender Identity Not on file Sexual Orientation Not on file Last Filed Vital Signs Vital Sign Reading Time Taken Comments Blood Pressure 155/88 08/19/2019 11:57 AM TOP TILE DECORATOR Pulse 81 08/19/2019 11:57 AM TOP TILE DECORATOR Temperature 36.9 C (98.4 F) 08/19/2019 11:57 AM TOP TILE DECORATOR Respiratory Rate 18 08/19/2019 11:57 AM TOP TILE DECORATOR Oxygen Saturation 100% 08/19/2019 11:57 AM TOP TILE DECORATOR Inhaled Oxygen Concentration - - Weight 64.4 kg (142 lb) 08/12/2020 11:56 AM TOP TILE DECORATOR Height 157.5 cm (5' 2) 12/04/2019 11:42 AM CDT Body Mass Index 25.97 12/04/2019 11:42 AM CDT Plan of Treatment Health Maintenance Due Date Last Done Comments BONE DENSITY TESTING 1940 DTAP/TDAP/TD VACCINES (1 - Tdap) 1957 PNEUMOCOCCAL VACCINE 50+ (1 of 1 - PCV) 1988 ZOSTER VACCINE (1 of 2) 1988 Respiratory Syncytial Virus (RSV) Vaccine Pt: or over 60 yrs (1 - 1-dose 75+ series) 2013 COVID-19 VACCINE ( season) 2024 DEPRESSION SCREENING 08/23/2024 INFLUENZA VACCINE (Season Ended) 2025 06/06/2018, 06/03/2017, 06/04/2016, Additional history exists HEPATITIS B VACCINE Aged Out No longe r eligible based on patient's age to complete this topic HIB VACCINE Aged Out No longer eligi ble based on patient's age to complete this topic HPV VACCINE Aged Out No longer eligi ble based on patient's age to complete this topic MENINGOCOCCAL (Group B) VACCINE SHARED DECISION-MAKING Aged Out No longer eligible based on patient's age to complete this topic MENINGOCOCCAL GROUPS A/C/Y/W VACCINE Aged Out No longer eligible based on patient's age to complete this topic Medical Devices Implanted Type Area Source Water Protection Specialist Device Identifier Shelf Expiration Date Model / Serial / Lot Plate 12 Hl Lck Lopro Blt Tip Tib Lt Implanted:Qty: 1 on 08/16/2019 by Mia Weaver MD at [facility] Left: [employer] [id number] / / Screw 3.5mm 38mm T15 Slf-Tap Lck Tpr Implanted:Qty: 1 on 08/16/2019 by Mia Weaver MD at [facility] Left: [employer] [id number] / / Screw 3.5mm 36mm T15 Slf-Tap Lck Tpr Implanted:Qty: 1 on 08/16/2019 by Mia Weaver MD at [facility] Left: [employer] [id number] / / Screw 3.5mm 24mm T15 Slf-Tap Lck Tpr Implanted:Qty: 1 on 08/16/2019 by Mia Weaver MD at [facility] Left: [employer] [id number] / / Screw 3.5mm 26mm 2.5mm Nonlock Hex Drv Implanted:Qty: 5 on 08/16/2019 by Mia Weaver MD at [facility] Left: [employer] [id number] / / Screw 3.5mm 28mm Ft Nonlock Hex Drv Elb Implanted:Qty: 3 on 08/16/2019 by Mia Weaver MD at [facility] Left: [employer] [id number] / / Screw 3.5mm 32mm T15 Slf-Tap Lck Tpr Implanted:Qty: 1 on 08/16/2019 by Mia Weaver MD at [facility] Left: [employer] [id number] / / Explanted Type Area Source Water Protection Specialist Device Identifier Shelf Expiration Date Model / Serial / Lot Wire K 1.6mm 6in Hlf Bynt Pnt Ss Fx Explanted:Qty: 1 on 08/16/2019 at [facility] Left: [employer] [id number] / / Insurance MEDICARE [facility] MEDICARE [facility] Advance Directives * Full Code (Latest Code Status on File) Date Activated Date Inactivated Comments 08/16/2019 12:08 AM 08/19/2019 1:55 PM * Full Code Date Activated Date Inactivated Comments 08/15/2019 11:33 PM 08/16/2019 12:08 AM Care Teams Sport Shoe Spike Assembler Relationship Specialty Start Date End Date Harrison Durán MD PCP - General Internal Medicine 08/15/19
--- OUTSIDE RECORDS SUMMARY | 2025-01-17 13:52 | XMS_ITS | Continuity of Care Document ---
Author Organization [facility] Address [address] [place] [address] [address] [place] [address] Phone Care Team Providers Care Balance Screwhead Polisher Name Role Phone Xenia Chavez Unavailable Unavailable Procedures Procedure Date Eye Exam & Treatment Eye Exam & Treatment Advance Directives Directive Yes / No Effective Date File Name No Information Encounters Encounter Description Practice Location Reason(s) For Visit Diagnoses Date Provider Providers Copied on Encounter [facility], [address] [place] [address] [address], [place], [place], [id number], tel:[phone] [facility] [place] No Information 5-200 8 Kathy Michaels. [address] [place] , [address], [place], [address], [place]. tel:[phone] [facility], [address] [place] [address] [address], [place], [place], [id number], tel:[phone] [facility] [place] No Information 2-200 7 Kathy Rollins [address] , [address], [place], [address], [place]. tel:[phone] Family History Family Member Type Diagnosis Age At Onset No Information Payers Payer name Insurance type Covered alliance party ID Authoriza tion(s) [place] [id number] [place] [id number] Social History Type Description Quantity Date Captured Comments Sex Female Smoking Status No Information Chief Complaint And Reason For Visit No Information Reason For Referral Reason For Referral No Information History Of Present Illness Encounter Date Complaint History Of Prese nt Illness No Information Functional Status Date Functional Assessmen t No Information Instructions Date Instruction Additional Infor mation No Information Assessments Type Assessment Date No Information Patient Care Teams Name Effective Dates (start - stop) Status Members No Information
[2025-01-17 14:58] LABS: Basophils Absolute Auto 0.1 K/mm3 (0.0-0.1); Basophils Percent Auto 1.1 % (0.2-1.2); Eosinophils Absolute Auto 0.4 K/mm3 (0-0.3); Eosinophils Percent Auto 4.6 % (0-4.4); Hematocrit 37.9 % (37.0-47.0); Hemoglobin 12.2 g/dL (12.0-15.0); Immature Granulocyte Absolute 0.07 K/mm3 (0.00-0.031); Immature Granulocyte Percent A 0.9 % (0-0.5); Lymphocytes Absolute Auto 2.24 K/mm3 (0.9-3.2); Lymphocytes Percent Auto 27.3 % (18.3-44.2); Mean Corpuscular HGB Conc 32.2 g/dl (32-36); Mean Corpuscular Volume 87.1 fl (80-100); Mean Platelet Volume 10.3 fl (7.4-10.4); Monocytes Absolute Auto 0.8 K/mm3 (0.1-0.6); Neutrophils Absolute Auto 4.6 K/mm3 (1.3-6.7); Neutrophils Percent Auto 56.1 % (45.5-73.1); Platelet Count Result 345 k/mm3 (150-375); Red Blood Count 4.35 M/mm3 (4.2-5.4); Red Cell Distribution Width 12.9 % (11.5-14.5); White Blood Count 8.2 K/mm3 (4.5-10.0)
[2025-01-17 15:15] LABS: Alanine Aminotransferase 19 U/L (6-35); Albumin Level 4.2 g/dL (3.5-5.1); Alkaline Phosphatase 66 U/L (38-126); Anion Gap 9 mmol/L (4-12); Aspartate Amino Transferase 32 U/L (14-36); Bilirubin,Total 0.5 mg/dL (0.2-1.3); Blood Urea Nitrogen 20 mg/dL (7-17); Calcium 9.6 mg/dL (8.4-10.2); Carbon Dioxide 29 mmol/L (22-30); Chloride 102 mmol/L (98-107); Cholesterol 165 mg/dL (0-200); Estimated Glomerular Filt Rate 43; Glucose 126 mg/dL (65-110); HDL Direct 39 mg/dL; Potassium 3.9 mmol/L (3.4-5.0); Sodium 140 mmol/L (137-145); Triglycerides 242 mg/dL (<150)
[2025-01-17 16:57] LABS: LDL Cholesterol Direct 74 mg/dL
== END 2025-01-17 13:43 | disposition home or self-care (01) ==
PROVIDERS: PCP Internal Medicine; Visit Provider Internal Medicine
DX: I10 Essential (primary) hypertension (principal)
CPT/HCPCS: 36415; 80053; 80061; 85025

== ENCOUNTER 2025-02-15 12:37 | Outpatient (CLI) | payer MEDICARE, SELFPAY ==
--- NOTE | 2025-02-15 | ECHO_ITS ---
Patient Info Name: Vicky Farr Age: 84 years : 1940 Gender: Female Ht: 62 in Wt: 140 lbs BSA: 1.68 m2 HR: 85 bpm BP: 145 / 84 mmHg Technical Quality: Good Exam Date: 02/15/2025 1:16 PM Patient Status: O Admit Date: 02/15/2025 Exam Type: CA echo doppler color flow Complete two-dimensional, color flow and Doppler transthoracic echocardiogram is performed. Mathematics Professor: Sheryl Prasad Attending Provider: Harrison Durán Summary 1. Complete two-dimensional, color flow and Doppler transthoracic echocardiogram is performed. 2. There is normal biventricular size and systolic function. 3. There is moderate aortic stenosis. Left Ventricle The left ventricle is normal in size and systolic function. The left ventricular ejection fraction is visually estimated to be 60-65%. Right Ventricle The right ventricle is normal in size and systolic function. Left Atria The left atrium is normal size. Right Atria The right atrium is normal size. Atrial Septum The atrial septum is not well visualized. Aortic Valve The aortic valve is trileaflet and calcified. There is moderate aortic stenosis. There is trace aortic regurgitation. Pulmonic Valve The pulmonic valve is not well visualized. There is no color Doppler evidence of pulmonic valve regurgitation. Mitral Valve There is mitral annular calcification. There is no mitral stenosis. There is no mitral regurgitation. Tricuspid Valve The tricuspid valve is grossly normal. There is trace tricuspid regurgitation. Pericardium/Pleural There is trace pericardial effusion. Inferior Vena Cava Normal inferior vena cava with >50% collapse upon inspiration consistent with normal right atrial pressure, 3 mmHg. Aorta The aortic root at the level of the sinus of Valsalva measures 2.9 cm in diameter. Left Ventricular Outflow Tract Name Value Normal LVOT 2D LVOT Diameter 2.0 cm LVOT Doppler LVOT Peak Velocity 86 cm/s LVOT Peak Gradient 3 mmHg LVOT Mean Gradient 2 mmHg LVOT VTI 27 cm LVOT VTI/AV VTI Ratio 0.4 LVOT Stroke Volume 84 ml LVOT CO 5.5 l/min LVOT CI 3.3 l/min/m2 Pulmonic Valve Name Value Normal RVOT Doppler RVOT Peak Velocity 75 cm/s RVOT Peak Gradient 2 mmHg PV Doppler PV Peak Velocity 95 cm/s PV Peak Gradient 4 mmHg Mitral Valve Name Value Normal MV Diastolic Function MV E Peak Velocity 98 cm/s MV A Peak Velocity 132 cm/s MV E/A 0.7 MV Decel Time (PW) 326 ms MV Annular TDI MV E/e' (Septal) 18.1 MV E/e' (Lateral) 17.8 MV E/e' (Average) 17.9 Tricuspid Valve Name Value Normal Estimated PAP/RSVP RA Pressure 3 mmHg <=5 Aortic Valve Name Value Normal AV Doppler AV Peak Velocity 291 cm/s AV Peak Gradient 31 mmHg AV Mean Gradient 14 mmHg AV VTI 72 cm AV Area (Cont Eq VTI) 1.2 cm2 >=3.0 AV Area (Cont Eq Rajeev) 0.9 cm2 AV DI (Rajeev) 0.29 AV Regurgitation 2D LVOT Area 3.2 cm2 Ventricles Name Value Normal LV Dimensions 2D/MM IVS Diastolic Thickness (2D) 0.9 cm 0.6-1.0 LVID Diastole (2D) 4.4 cm 3.8-5.2 LVIW Diastolic Thickness (2D) 0.9 cm 0.6-0.9 LVID Systole (2D) 3.0 cm 2.2-3.5 LVOT Diameter 2.0 cm LV Mass (2D Cubed) 121.92 g 67.00-162.00 LV Mass Index (2D Cubed) 73 g/m2 43-95 Relative Wall Thickness (2D) 0.40 <=0.42 LV Fractional Shortening/Ejection Fraction 2D/MM LV Fractional Shortening (2D) 30 % 27-45 LV EF (2D Teichholz) 57 % LV Diastolic Volume (4C MOD) 67 ml LV EF (4C MOD) 58 % LV Diastolic Volume (2C MOD) 77 ml LV EF (2C MOD) 63 % LV Diastolic Volume (BP MOD) 74 ml 46-106 LV Diastolic Volume Index (BP MOD) 44 ml/m2 29-61 LV Systolic Volume (BP MOD) 29 ml 14-42 LV Systolic Volume Index (BP MOD) 17 ml/m2 8-24 LV EF (BP MOD) 60 % 54-74 LV Diastolic Length (4C) 7.2 cm LV Systolic Length (4C) 5.9 cm LV Stroke Volume (4C MOD) 39 ml Atria Name Value Normal LA Dimensions LA Volume (4C A-L) 38 ml LA Volume (BP A-L) 42 ml RA Dimensions RA Systolic Major Scott Length (4C) 5.2 cm 2.2-2.8 RA Area (4C) 10.0 cm2 <=18.0 Report Signatures
== END 2025-02-15 12:38 | disposition home or self-care (01) ==
LOC: ANHCARD 12:41
PROVIDERS: PCP Internal Medicine; Visit Provider Internal Medicine
DX: I10 Essential (primary) hypertension (principal)
CPT/HCPCS: 93306